=== PATIENT | male | born 1950 | race Caucasian/White ===

== ENCOUNTER 2018-10-27 19:59 | Emergency (ER) | payer MEDICARE, OTHER ==
--- NOTE | 2018-10-27 20:08 | ERPHSYRPT ---
- History of Present Illness Time Seen by Provider: 10/27/18 20:01 Historian: patient Exam Limitations: no limitations Physician History: 68 y/o white male presents with intermittent stinging sharp substernal cp for 2 weeks. he has had 2 episodes of heavy substernal cp. most recently tonight. pt denies soa. pt denies cough, abd pain, n/v/d. pt has htn, hypercholesterolemia. pt took one baby asa this morning. pt did state he is under a lot of stress Timing/Duration: week(s) (2), worse (today) Quality: dullness, pressure Location: substernal (left of ) Chest Pain Radiation: no radiation Severity of Pain-Max: mild Severity of Pain-Current: mild Associated Symptoms: No nausea, No vomiting, No palpitations, No heartburn, No abdominal pain, No shortness of breath, No cough, No hurts to breathe, No diaphoresis, No fatigue, No weakness, No swelling/lump in chest, No syncope, No rash, No headache, No dizziness, No edema, No back pain Prior Chest Pain/Cardiac Workup: no prior chest pain Nitro Today/Relief: no nitro taken today Aspirin Treatment Today: 81 mg x 1, provided at home Allergies/Adverse Reactions: No Known Drug Allergies Allergy (Verified 10/27/18 22:06) - Review of Systems Constitutional: No Symptoms Eyes: No Symptoms Ears, Nose, & Throat: No Symptoms Respiratory: No Symptoms Cardiac: Chest Pain (mild) Abdominal/Gastrointestinal: No Symptoms Genitourinary Symptoms: No Symptoms Musculoskeletal: No Symptoms Skin: No Symptoms Neurological: No Symptoms Psychological: No Symptoms Endocrine: No Symptoms Hematologic/Lymphatic: No Symptoms Immunological/Allergic: No Symptoms All Other Systems: Reviewed and Negative - Past Medical History Pertinent Past Medical History: Yes Neurological History: No Pertinent History ENT History: No Pertinent History Cardiac History: No Pertinent History Respiratory History: No Pertinent History Endocrine Medical History: No Pertinent History Musculoskeletal History: No Pertinent History GI Medical History: No Pertinent History History: No Pertinent History Psycho-Social History: No Pertinent History Male Reproductive Disorders: No Pertinent History - Past Surgical History Neuro Surgical History: No Pertinent History Cardiac: No Pertinent History Respiratory: No Pertinent History Gastrointestinal: No Pertinent History Genitourinary: No Pertinent History Musculoskeletal: No Pertinent History Male Surgical History: No Pertinent History - Nursing Vital Signs Nursing Vital Signs: Initial Vital Signs Temperature 97.9 F 10/27/18 20:16 Pulse Rate 92 H 10/27/18 20:16 Respiratory Rate 18 10/27/18 20:16 Blood Pressure 145/85 10/27/18 20:16 O2 Sat by Pulse Oximetry 96 10/27/18 20:16 Pain Scale Pain Intensity 2 - Physical Exam General Appearance: no apparent distress, alert, anxiety Eye Exam: PERRL/EOMI, eyes nml inspection Ears, Nose, Throat Exam: normal ENT inspection, TMs normal, moist mucous membranes Neck Exam: normal inspection, non-tender, supple, full range of motion Respiratory Exam: normal breath sounds, chest tenderness (mild), lungs clear, airway intact, No respiratory distress, No accessory muscle use, No rhonchi, No wheezing, No stridor Cardiovascular Exam: regular rate/rhythm, normal heart sounds, normal peripheral pulses Gastrointestinal/Abdomen Exam: soft, normal bowel sounds, No tenderness, No guarding, No rebound Rectal Exam: not done Back Exam: normal inspection, normal range of motion, No CVA tenderness, No vertebral tenderness Extremity Exam: normal inspection, normal range of motion, pelvis stable Neurologic Exam: alert, oriented x 3, cooperative, 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 Skin Exam: normal color, warm, dry Lymphatic Exam: No adenopathy SpO2 Interpretation: normal - Course Nursing assessment & vital signs reviewed: Yes EKG Interpreted by Me: RATE (92), Sinus Rhythm, NORMAL AXIS, NORMAL INTERVALS, NORMAL QRS, NORMAL ST-T Ordered Tests: Active Orders 24 hr Category Date Time Status Materials Mgmt Tech STAT Care 10/27/18 22:07 Active EKG-ER Only STAT Care 10/27/18 22:06 Active IV Insertion STAT Care 10/27/18 22:06 Active CHEST 1 VIEW (PORTABLE) Stat Exams 10/27/18 22:07 Taken CBC W DIFF Stat Lab 10/27/18 22:00 Completed CMP Stat Lab 10/27/18 22:00 Completed D-DIMER QUANTITATION Stat Lab 10/27/18 22:00 Completed NT PRO BNP Stat Lab 10/27/18 22:00 Completed TROPONIN Q3H Lab 10/27/18 22:00 Completed TROPONIN Q3H Lab 10/28/18 01:15 Ordered TROPONIN Q3H Lab 10/28/18 04:15 Ordered TROPONIN Q3H Lab 10/28/18 07:15 Ordered TROPONIN Q3H Lab 10/28/18 10:15 Ordered Medication Summary Generic Name Dose Route Start Last Admin Trade Name Malika PRN Reason Stop Dose Admin Sodium Chloride 1,000 mls @ 50 mls/hr 10/27/18 22:15 10/27/18 22:39 Sodium Chloride 0.9% 1000 Ml IV 11/26/18 22:14 50 mls/hr .Q20H TIMMY Administration Discontinued Medications Generic Name Dose Route Start Last Admin Trade Name Malika PRN Reason Stop Dose Admin Aspirin 243 mg 10/27/18 22:06 10/27/18 22:41 Baby Aspirin 81 Mg Chew PO 10/27/18 22:07 243 mg STAT ONE Administration Morphine Sulfate 2 mg 10/27/18 22:06 10/27/18 23:06 Morphine Sulfate 2 Mg Inj IV 10/27/18 22:07 Not Given STAT ONE Morphine Sulfate Confirm 10/27/18 22:34 Morphine Sulfate 2 Mg Inj Administered 10/27/18 22:35 Dose 2 mg .ROUTE .STK-MED ONE Ondansetron HCl 4 mg 10/27/18 22:06 10/27/18 23:06 Zofran 4 Mg/2 Ml Vial IV 10/27/18 22:07 Not Given STAT ONE Ondansetron HCl Confirm 10/27/18 22:34 Zofran 4 Mg/2 Ml Vial Administered 10/27/18 22:35 Dose 4 mg .ROUTE .STK-MED ONE Lab/Rad Data: Laboratory Result Diagrams 10/27/18 22:00 10/27/18 22:00 Laboratory Results 10/27/18 10/27/18 10/27/18 Range/Units 22:00 22:00 22:00 WBC (4.0-10.5) K/mm3 RBC (4.1-5.6) M/mm3 Hgb (12.5-18.0) gm/dl Hct (42-50) % MCV (78-100) fl MCH (26-32) pg MCHC (32-36) g/dl RDW (11.5-14.0) % Plt Count (150-450) K/mm3 MPV (6-9.5) fl Gran % (36.0-66.0) % Eos # (Auto) (0-0.5) Absolute Lymphs (auto) (1.0-4.6) Absolute Monos (auto) (0.0-1.3) Lymphocytes % (24.0-44.0) % Monocytes % (0.0-12.0) % Eosinophils % (0.00-5.0) % Basophils % (0.0-0.4) % Absolute Granulocytes (1.4-6.9) Basophils # (0-0.4) D-Dimer < 215 L (215-500) ng/mL Sodium 139 (137-145) mmol/L Potassium 3.8 (3.5-5.1) mmol/L Chloride 101 (98-107) mmol/L Carbon Dioxide 24 (22-30) mmol/L Anion Gap 17.9 H (5-15) MEQ/L BUN 24 H (9-20) mg/dL Creatinine 1.57 H (0.66-1.25) mg/dL Estimated GFR 46.8 ML/MIN Glucose 88 (74-106) mg/dL Calcium 9.3 (8.4-10.2) mg/dL Total Bilirubin 1.30 (0.2-1.3) mg/dL AST 35 (17-59) U/L ALT 28 (0-50) U/L Alkaline Phosphatase 85 (38-126) U/L Troponin I < 0.012 (0.000-0.034) ng/mL NT-Pro-B Natriuret Pep 61.9 (0-900) pg/mL Serum Total Protein 8.0 (6.3-8.2) g/dL Albumin 5.0 (3.5-5.0) g/dL 10/27/18 Range/Units 22:00 WBC 9.8 (4.0-10.5) K/mm3 RBC 5.45 (4.1-5.6) M/mm3 Hgb 16.8 (12.5-18.0) gm/dl Hct 50.7 H (42-50) % MCV 93.0 (78-100) fl MCH 30.8 (26-32) pg MCHC 33.1 (32-36) g/dl RDW 13.9 (11.5-14.0) % Plt Count 227 (150-450) K/mm3 MPV 11.2 H (6-9.5) fl Gran % 61.4 (36.0-66.0) % Eos # (Auto) 0.09 (0-0.5) Absolute Lymphs (auto) 2.75 (1.0-4.6) Absolute Monos (auto) 0.90 (0.0-1.3) Lymphocytes % 28.2 (24.0-44.0) % Monocytes % 9.2 (0.0-12.0) % Eosinophils % 0.9 (0.00-5.0) % Basophils % 0.3 (0.0-0.4) % Absolute Granulocytes 5.98 (1.4-6.9) Basophils # 0.03 (0-0.4) D-Dimer (215-500) ng/mL Sodium (137-145) mmol/L Potassium (3.5-5.1) mmol/L Chloride (98-107) mmol/L Carbon Dioxide (22-30) mmol/L Anion Gap (5-15) MEQ/L BUN (9-20) mg/dL Creatinine (0.66-1.25) mg/dL Estimated GFR ML/MIN Glucose (74-106) mg/dL Calcium (8.4-10.2) mg/dL Total Bilirubin (0.2-1.3) mg/dL AST (17-59) U/L ALT (0-50) U/L Alkaline Phosphatase (38-126) U/L Troponin I (0.000-0.034) ng/mL NT-Pro-B Natriuret Pep (0-900) pg/mL Serum Total Protein (6.3-8.2) g/dL Albumin (3.5-5.0) g/dL - Progress Progress: improved, re-examined Air Movement: good Progress Note: 10/27/18 23:40 pt denies cp, denies soa. cxr- no acute process Blood Culture(s) Obtained: No Antibiotics given: No Counseled pt/family regarding: lab results, diagnosis, need for follow-up, rad results - Departure Time of Disposition: 23:40 Departure Disposition: Home Clinical Impression: Chest pain Condition: Stable Critical Care Time: No Referrals: ISABELLE HURTADO MD [Primary Care Provider] - Additional Instructions: take medications as prescribed. follow up with primary doctor for further management
[2018-10-27] MEDS ORDERED: MORPHINE SULFATE 2 MG INJ IV ONE (22:06)
[2018-10-27] MEDS ORDERED: Zofran 4 MG/2 ML VIAL IV ONE (22:06)
[2018-10-27] MEDS ORDERED: BABY ASPIRIN 81 MG CHEW PO ONE (22:06)
[2018-10-27] MEDS ORDERED: Sodium Chloride 0.9% 1000 ML 1,000 ML IV SCH (22:15)
[2018-10-27 22:17] LABS: BASOPHIL % 0.3 % (0.0-0.4); Basophil (Absolute #) 0.03 (0-0.4); Eosinophil % 0.9 % (0.00-5.0); Eosinophil (Absolute #) 0.09 (0-0.5); Granulocyte Absolute (ANC) 5.98 (1.4-6.9); Granulocytes % 61.4 % (36.0-66.0); Hematocrit 50.7 % (42-50); Hemoglobin 16.8 gm/dl (12.5-18.0); Lymphocyte (Absolute #) 2.75 (1.0-4.6); Lymphocytes % 28.2 % (24.0-44.0); Mean Corpuscular Hemoglobin 30.8 pg (26-32); Mean Corpuscular Hgb Concent. 33.1 g/dl (32-36); Mean Platelet Volume 11.2 fl (6-9.5); Monocytes % 9.2 % (0.0-12.0); Platelet Count 227 K/mm3 (150-450); Red Blood Count 5.45 M/mm3 (4.1-5.6); Red Cell Distribution Width 13.9 % (11.5-14.0); White Blood Count 9.8 K/mm3 (4.0-10.5)
[2018-10-27 22:30] LABS: ANION GAP 17.9 MEQ/L (5-15); BILIRUBIN,TOTAL 1.3 mg/dL (0.2-1.3); Calcium 9.3 mg/dL (8.4-10.2); Creatinine 1 1.57 mg/dL (0.66-1.25); NT PRO BNP 61.9 pg/mL (0-900); Potassium 3.8 mmol/L (3.5-5.1)
[2018-10-27] MEDS ORDERED: MORPHINE SULFATE 2 MG INJ ONE (22:34)
[2018-10-27] MEDS ORDERED: Zofran 4 MG/2 ML VIAL ONE (22:34)
[2018-10-27] MEDS ORDERED: Sodium Chloride 0.9% 1000 ML 1,000 ML ONE (22:34)
[2018-10-27 23:15] VITALS: O2SAT 98
[2018-10-28 00:07] VITALS: BP 112/74; PULSE 89
--- NOTE | 2018-10-28 08:58 | XRAY ---
Indication: Chest pain. Comparison: None Portable apical lordotic chest slightly underinflated and clear. Heart and mediastinal structures within normal limits. Bony thorax intact with mild osteopenia and degenerative changes. Impression: Nonacute chest.
== END 2018-10-28 00:08 | disposition home or self-care (01) ==
LOC: ED 19:59
DX: R07.9 Chest pain, unspecified (principal)
CPT/HCPCS: 36000; 36415; 71045; 80053; 83880; 84484; 85025; 85379; 93005; 93041; 96360; 96361; 96374; 99284; J2270; J2405; A9270-GY

== ENCOUNTER 2019-10-07 18:31 | Emergency (ER) | payer MEDICARE, OTHER ==
--- NOTE | 2019-10-07 19:32 | ERPHSYRPT ---
- History of Present Illness Time Seen by Provider: 10/07/19 20:05 Source: patient Exam Limitations: no limitations Patient Subjective Stated Complaint: pt states that he has had cough that has lasted for the past 1 week, pt states intermitten pain to left ribs and abddomen when coughing, pt states that he has taken OTC cold medication and cough medication with no relief, pt states he has had fever in addition Triage Nursing Assessment: pt ambulated into ER, pt has dry hacking cough, pt states he is not able to cough anything up, pt has expiratory wheezing, hypertention, tachycardia Physician History: 69-year-old male endorses one week of persistent dry cough. Now having left- sided chest pain and abdominal cramping with coughing. No fevers or chills. Is also cold and flu has dried up his sinuses but not help with the cough. he denies fevers or chills, nausea or vomiting. Exertional chest pain or recent leg swelling. No travel or sick contacts. PMH: Patient endorses a history of hypertension Social: Patient denies tobacco Allergies/Adverse Reactions: No Known Drug Allergies Allergy (Verified 10/07/19 19:22) Home Medications: Aspirin 81 mg PO DAILY 10/07/19 [History] Atorvastatin Calcium 20 mg PO HS 10/07/19 [History] Lisinopril 5 mg PO DAILY 10/07/19 [History] Loratadine [Claritin] 10 mg PO DAILY 10/07/19 [History] Hx Tetanus, Diphtheria Vaccination/Date Given: Yes Hx Influenza Vaccination/Date Given: No Hx Pneumococcal Vaccination/Date Given: No - Review of Systems Constitutional: No Fever, No Chills Eyes: No Symptoms Ears, Nose, & Throat: No Symptoms Respiratory: Cough, Dyspnea Cardiac: No Chest Pain, No Edema, No Syncope Abdominal/Gastrointestinal: No Abdominal Pain, No Nausea, No Vomiting, No Diarrhea Genitourinary Symptoms: No Dysuria Musculoskeletal: No Back Pain, No Neck Pain Skin: No Rash Neurological: No Dizziness, No Focal Weakness, No Sensory Changes Psychological: No Symptoms Endocrine: No Symptoms All Other Systems: Reviewed and Negative - Past Medical History Pertinent Past Medical History: Yes Neurological History: No Pertinent History ENT History: No Pertinent History Cardiac History: High Cholesterol, Hypertension Respiratory History: No Pertinent History Endocrine Medical History: No Pertinent History Musculoskeletal History: No Pertinent History GI Medical History: No Pertinent History History: No Pertinent History Psycho-Social History: No Pertinent History Male Reproductive Disorders: No Pertinent History - Past Surgical History Past Surgical History: Yes Neuro Surgical History: No Pertinent History Cardiac: No Pertinent History Respiratory: No Pertinent History Gastrointestinal: Appendectomy Genitourinary: No Pertinent History Musculoskeletal: No Pertinent History Male Surgical History: No Pertinent History - Social History Smoking Status: Former smoker Exposure to second hand smoke: No Drug Use: none Patient Lives Alone: No - Nursing Vital Signs Nursing Vital Signs: Initial Vital Signs Temperature 99 F 10/07/19 19:11 Pulse Rate 107 H 10/07/19 19:11 Respiratory Rate 19 10/07/19 19:11 Blood Pressure 157/87 10/07/19 19:11 O2 Sat by Pulse Oximetry 95 10/07/19 19:11 - Physical Exam General Appearance: no apparent distress, alert Eye Exam: PERRL/EOMI Neck Exam: normal inspection, supple Respiratory Exam: normal breath sounds, lungs clear, No respiratory distress, No diminished breath sounds Cardiovascular/Chest Exam: normal heart sounds, regular rate/rhythm Abdominal/Gastrointestinal Exam: soft, No tenderness, No distention, No mass Extremity Exam: non-tender, normal range of motion, normal inspection, no calf tenderness, no pedal edema Neurologic Exam: alert, oriented x 3, cooperative, 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 No infiltrates on imaging. Very low suspicion for pneumonia. Likely acute bronchitis. No evidence of emergent cardiopulmonary etiology. Symptomatic treatment recommended. Follow up with primary care recommended. Patient was understanding of this plan at time of discharge. 10/08/19 01:56 Blood Culture(s) Obtained: No Antibiotics given: No - Departure Departure Disposition: Home Clinical Impression: Cough, Bronchitis Chest pain Qualifiers: Chest pain type: other chest pain Qualified Code(s): R07.89 - Other chest pain Condition: Stable Critical Care Time: No Referrals: ISABELLE HURTADO MD [Primary Care Provider] - Prescriptions: Prednisone 20 mg [Deltasone 20 mg] 40 mg PO DAILY #8 tablet
[2019-10-07 20:06] VITALS: BP 120/74; PULSE 101
[2019-10-07] MEDS ORDERED: DELTASONE 20 MG ONE (20:20)
[2019-10-07] MEDS: DELTASONE 20 MG PO ONE (20:22)
--- NOTE | 2019-10-07 22:54 | XRAY ---
Indication: Fever, cough, short of breath, and headache. Comparison: October 27, 2018. PA/lateral chest remains clear. Heart is not enlarged again with a few mediastinal calcified nodes. Bony thorax intact again with mild osteopenia and degenerative changes. Impression: Stable nonacute chest with chronic features.
[2019-10-08 01:57] VITALS: O2SAT 95
== END 2019-10-07 20:48 | disposition home or self-care (01) ==
LOC: ED 18:31
DX: R05 Cough (principal); J40 Bronchitis, not specified as acute or chronic; R07.89 Other chest pain
CPT/HCPCS: 71046; 99283; A9270-GY

== ENCOUNTER 2020-05-09 12:54 | Emergency (ER) | payer MEDICARE ==
[2020-05-09 13:08] VITALS: BP 118/85; PULSE 108; O2SAT 96
[2020-05-09] MEDS ORDERED: Adacel Vial IM ONE ×2 (13:21→13:31)
--- NOTE | 2020-05-09 13:41 | ERPHSYRPT ---
- History of Present Illness Time Seen by Provider: 05/09/20 13:06 Source: patient Exam Limitations: no limitations Patient Subjective Stated Complaint: Pt was cutting an onion and cut his left index finger at the tip Triage Nursing Assessment: Pt brought self to the ER, tachycardic, 1 cm bleeding laceration to the left index finger on the tip, pt on baby aspirin, pulses normal, denies pain, doesn't appear to be in any distress Physician History: 69 years old male presented in the ER with chief complaint of left index finger laceration while cutting onions with a knife. It is on the lateral aspect of her right distal index finger before the nail. There was bleeding initially but stopped after applying pressure. Mild pain with movements and applying pressure. Intact movements at distal interphalangeal joint. No injury to the nail. Occurred: just prior to arrival Method of Injury: incised Quality: constant Severity of Pain-Max: mild Severity of Pain-Current: none Extremities Pain Location: 2nd finger: left Modifying Factors: Improves With: movement Associated Symptoms: none Allergies/Adverse Reactions: No Known Drug Allergies Allergy (Verified 05/09/20 13:08) Home Medications: Aspirin 81 mg PO DAILY 10/07/19 [History] Atorvastatin Calcium 20 mg PO HS 10/07/19 [History] Loratadine [Claritin] 10 mg PO DAILY 10/07/19 [History] lisinopriL [Lisinopril] 5 mg PO DAILY 10/07/19 [History] Hx Tetanus, Diphtheria Vaccination/Date Given: Yes (unknown) Hx Influenza Vaccination/Date Given: No Hx Pneumococcal Vaccination/Date Given: No Travel Risk - International Travel Have you traveled outside of the country in past 3 weeks: No - Coronavirus Screening Are you exhibiting any of the following symptoms?: No Close contact with a COVID-19 positive Pt in past 14-21 Days: No - Review of Systems Constitutional: No Symptoms Eyes: No Symptoms Ears, Nose, & Throat: No Symptoms Respiratory: No Symptoms Cardiac: No Symptoms Abdominal/Gastrointestinal: No Symptoms Skin: Skin Lesions Neurological: No Symptoms Psychological: No Symptoms Endocrine: No Symptoms Hematologic/Lymphatic: No Symptoms Immunological/Allergic: No Symptoms - Past Medical History Pertinent Past Medical History: Yes Neurological History: No Pertinent History ENT History: No Pertinent History Cardiac History: High Cholesterol, Hypertension Respiratory History: No Pertinent History Endocrine Medical History: No Pertinent History Musculoskeletal History: No Pertinent History GI Medical History: No Pertinent History History: No Pertinent History Psycho-Social History: No Pertinent History Male Reproductive Disorders: No Pertinent History - Past Surgical History Past Surgical History: Yes Neuro Surgical History: No Pertinent History Cardiac: No Pertinent History Respiratory: No Pertinent History Gastrointestinal: Appendectomy Genitourinary: No Pertinent History Musculoskeletal: No Pertinent History Male Surgical History: No Pertinent History - Social History Smoking Status: Former smoker Exposure to second hand smoke: No Drug Use: none Patient Lives Alone: No - Nursing Vital Signs Nursing Vital Signs: Initial Vital Signs Temperature 98.5 F 05/09/20 13:01 Pulse Rate 108 H 05/09/20 13:01 Blood Pressure 118/85 05/09/20 13:01 O2 Sat by Pulse Oximetry 96 05/09/20 13:01 Pain Scale Pain Intensity 0 - Physical Exam General Appearance: no apparent distress, alert, anxiety Eyes, Ears, Nose, Throat Exam: normal ENT inspection Neck Exam: normal inspection, supple, full range of motion Cardiovascular/Respiratory Exam: chest non-tender, normal breath sounds Back Exam: normal inspection Hand Exam: normal ROM, laceration (1cm superficial left index distal phalanx lateral aspect ) Neuro/Tendon Exam: normal sensation, normal motor functions, normal tendon functions Mental Status Exam: alert, oriented x 3, cooperative Skin Exam: normal color SpO2 Interpretation: normal SpO2: 96 O2 Delivery: Room Air Procedures - Laceration/Wound Repair Left Upper Lateral Finger Wound Location: Left, hand Wound Length (cm): 1 Wound's Depth, Shape: superficial Wound Explored: clean Irrigated: Yes Hibiclens Prep: Yes Wound Repaired With: Steri-strips, Dermabond - Course Nursing assessment & vital signs reviewed: Yes Ordered Tests: Medication Summary Discontinued Medications Generic Name Dose Route Start Last Admin Trade Name Freq PRN Reason Stop Dose Admin Diphtheria/Tetanus/Acell Pertussis 0.5 ml 05/09/20 13:21 05/09/20 13:32 Adacel Vial IM 05/09/20 13:22 0.5 ml .ONCE ONE Administration Diphtheria/Tetanus/Acell Pertussis Confirm 05/09/20 13:31 Adacel Vial Administered 05/09/20 13:32 Dose 0.5 ml IM .STK-MED ONE - Progress Progress: improved Progress Note: Superficial cut. Repaired with glue and Steri-Strip. Counseled pt/family regarding: diagnosis, need for follow-up - Departure Departure Disposition: Home Clinical Impression: Finger laceration Qualifiers: Encounter type: initial encounter Finger: index finger Damage to nail status: without damage Foreign body presence: without foreign body Laterality: left Qualified Code(s): S61.211A - Laceration without foreign body of left index finger without damage to nail, initial encounter Condition: Stable Critical Care Time: No Referrals: ISABELLE HURTADO MD [Primary Care Provider] - (1-2 days for re evaluation) Instructions: Laceration Repair With Glue (DC), Wound Care (DC) Additional Instructions: apply ice, elevation, tylenol as needed.
== END 2020-05-09 13:45 | disposition home or self-care (01) ==
LOC: ED 12:54
DX: S61.211A Laceration without foreign body of left index finger without damage to nail, initial encounter (principal); W26.0XXA Contact with knife, initial encounter; Y93.G1 Activity, food preparation and clean up; Y92.9 Unspecified place or not applicable; Z79.899 Other long term (current) drug therapy; I10 Essential (primary) hypertension; E78.00 Pure hypercholesterolemia, unspecified
CPT/HCPCS: 12001; 90471; 90715; 99283

== ENCOUNTER 2022-12-30 18:54 | Emergency (ER) | payer MEDICARE ==
--- NOTE | 2022-12-30 19:03 | ERPHSYRPT ---
- History of Present Illness Time Seen by Provider: 12/30/22 19:03 Historian: patient, family Exam Limitations: no limitations Physician History: This is a 72-year-old white male who presents with 1 week long of intermittent substernal central chest pain described as nonradiating and kind of a burning area. 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 Patient does have a history of hypertension and elevated cholesterol. Patient sees Dr. Hurtado tomorrow morning in his office. He does not complain of shortness of breath. He has no abdominal pain. He has no flulike symptoms. Additional information history was obtained from the patient's spouse. Patient was concerned because it has been more constant throughout the day today. He was not exerting himself any different than he normally does. Timing/Duration: week(s) (1) Activities at Onset: none Quality: burning Location: substernal, central Chest Pain Radiation: no radiation (Localized) Severity of Pain-Max: mild Severity of Pain-Current: mild Modifying Factors: Improves With: nothing Associated Symptoms: denies symptoms Prior Chest Pain/Cardiac Workup: no prior chest pain, no prior cardiac workup Nitro Today/Relief: no nitro taken today Aspirin Treatment Today: 81 mg x 1, provided at home Allergies/Adverse Reactions: No Known Drug Allergies Allergy (Verified 12/30/22 19:08) Home Medications: Aspirin 81 mg PO DAILY 10/07/19 [History] Atorvastatin Calcium 20 mg PO HS 10/07/19 [History] lisinopriL [Lisinopril] 5 mg PO DAILY 10/07/19 [History] Potassium Citrate [Potassium] 99 mg PO DAILY 12/30/22 [History] Hx Tetanus, Diphtheria Vaccination/Date Given: Yes (unknown) Hx Influenza Vaccination/Date Given: No Hx Pneumococcal Vaccination/Date Given: No Travel Risk - International Travel Have you traveled outside of the country in past 3 weeks: No - Coronavirus Screening Are you exhibiting any of the following symptoms?: No Close contact with a COVID-19 positive Pt in past 14-21 Days: No - Review of Systems Constitutional: No Symptoms Eyes: No Symptoms Ears, Nose, & Throat: No Symptoms Respiratory: No Symptoms Cardiac: Chest Pain Abdominal/Gastrointestinal: No Symptoms Genitourinary Symptoms: No Symptoms Musculoskeletal: No Symptoms Skin: No Symptoms Neurological: No Symptoms Psychological: No Symptoms Endocrine: No Symptoms Hematologic/Lymphatic: No Symptoms Immunological/Allergic: No Symptoms All Other Systems: Reviewed and Negative - Past Medical History Pertinent Past Medical History: Yes Neurological History: No Pertinent History ENT History: No Pertinent History Cardiac History: High Cholesterol, Hypertension Respiratory History: No Pertinent History Endocrine Medical History: No Pertinent History Musculoskeletal History: No Pertinent History GI Medical History: No Pertinent History History: No Pertinent History Psycho-Social History: No Pertinent History Male Reproductive Disorders: No Pertinent History - Past Surgical History Past Surgical History: Yes Neuro Surgical History: No Pertinent History Cardiac: No Pertinent History Respiratory: No Pertinent History Gastrointestinal: Appendectomy Genitourinary: No Pertinent History Musculoskeletal: No Pertinent History Male Surgical History: No Pertinent History - Social History Smoking Status: Former smoker Exposure to second hand smoke: No Drug Use: none Patient Lives Alone: No - Nursing Vital Signs Nursing Vital Signs: Initial Vital Signs Temperature 98.2 F 12/30/22 18:56 Pulse Rate 86 12/30/22 18:56 Respiratory Rate 21 12/30/22 18:56 Blood Pressure 151/87 12/30/22 18:56 O2 Sat by Pulse Oximetry 98 12/30/22 18:56 Pain Scale Pain Intensity 3 - Physical Exam General Appearance: no apparent distress, alert, anxiety Eye Exam: PERRL/EOMI, eyes nml inspection Ears, Nose, Throat Exam: normal ENT inspection, moist mucous membranes Neck Exam: normal inspection, non-tender, supple, full range of motion Respiratory Exam: normal breath sounds, chest tenderness, lungs clear, airway intact, No respiratory distress Cardiovascular Exam: regular rate/rhythm, normal heart sounds, normal peripheral pulses Gastrointestinal/Abdomen Exam: soft, normal bowel sounds, No tenderness Rectal Exam: not done Back Exam: normal inspection, normal range of motion, No CVA tenderness, No vertebral tenderness Extremity Exam: normal inspection, normal range of motion, pelvis stable Neurologic Exam: alert, oriented x 3, cooperative, can dragger II-XII nml as tested, normal mood/affect, nml cerebellar function, nml station & gait, sensation nml Skin Exam: normal color, warm, dry Lymphatic Exam: No adenopathy SpO2 Interpretation: normal O2 Delivery: Room Air - Course Nursing assessment & vital signs reviewed: Yes EKG Interpreted by Me: RATE, A-fib, NORMAL AXIS, NORMAL INTERVALS, NORMAL QRS, Other (No acute ischemic changes on today's EKG. This twelve-lead EKG was interpreted by me. There is rate controlled atrial fibrillation on today's twelve-lead EKG which is different than the normal sinus rhythm that was present on the twelve-lead EKG that was performed on 11/26/2018.) Ordered Tests: Active Orders 24 hr Category Date Time Status Air Drier Machine Operator STAT Care 12/30/22 19:09 Active EKG-ER Only STAT Care 12/30/22 19:08 Active IV Insertion STAT Care 12/30/22 19:08 Active Pulse Oximetry (ED) STAT Care 12/30/22 19:08 Active CHEST 1 VIEW (PORTABLE) Stat Exams 12/30/22 19:08 Taken CBC W DIFF Stat Lab 12/30/22 19:00 Completed CMP Stat Lab 12/30/22 19:00 Completed D-DIMER QUANTITATIVE Stat Lab 12/30/22 19:00 Completed NT PRO BNP Stat Lab 12/30/22 19:00 Completed TROPONIN Q4H Lab 12/30/22 19:00 Completed TROPONIN Q4H Lab 12/30/22 23:15 Ordered TROPONIN Q4H Lab 12/31/22 03:15 Ordered Medication Summary Discontinued Medications Generic Name Dose Route Start Last Admin Trade Name Freq PRN Reason Stop Dose Admin Aspirin 243 mg 12/30/22 19:08 12/30/22 19:13 Aspirin 81 Mg Tab.Chew PO 12/30/22 19:09 243 mg STAT ONE Administration Lab/Rad Data: Laboratory Result Diagrams 12/30/22 19:00 12/30/22 19:00 Laboratory Results 12/30/22 12/30/22 12/30/22 Range/Units 19:00 19:00 19:00 WBC (4.0-10.5) x10^3/uL RBC (4.1-5.6) x10^6/uL Hgb (12.5-18.0) g/dL Hct (42-50) % MCV (78-100) fL MCH (26-32) pg MCHC (32-36) g/dL RDW (11.5-14.0) % Plt Count (150-450) x10^3/uL MPV (7.5-11.0) fL Gran % (36.0-66.0) % Immature Gran % (Auto) (0.00-0.4) % Nucleat RBC Rel Count (0.00-0.1) % Eos # (Auto) (0-0.5) x10^3/uL Immature Gran # (Auto) (0.00-0.03) x10^3u/L Absolute Lymphs (auto) (1.0-4.6) x10^3/uL Absolute Monos (auto) (0.0-1.3) x10^3/uL Absolute Nucleated RBC (0.00-0.01) x10^3u/L Lymphocytes % (24.0-44.0) % Monocytes % (0.0-12.0) % Eosinophils % (0.00-5.0) % Basophils % (0.0-0.4) % Absolute Granulocytes (1.4-6.9) x10^3/uL Basophils # (0-0.4) x10^3/uL D-Dimer < 0.19 (0.0-0.50) mg/L Sodium 139 (137-145) mmol/L Potassium 4.0 (3.5-5.1) mmol/L Chloride 105 (98-107) mmol/L Carbon Dioxide 26 (22-30) mmol/L Anion Gap 12.0 (5-15) MEQ/L BUN 21 H (9-20) mg/dL Creatinine 1.30 H (0.66-1.25) mg/dL Estimated GFR 57.5 ML/MIN Glucose 128 H (74-106) mg/dL Calcium 8.8 (8.4-10.2) mg/dL Total Bilirubin 1.00 (0.2-1.3) mg/dL AST 30 (17-59) U/L ALT 23 (0-50) U/L Alkaline Phosphatase 73 (38-126) U/L Troponin I < 0.012 (0.000-0.034) ng/mL NT-Pro-B Natriuret Pep 65.9 (0-900) pg/mL Serum Total Protein 7.3 (6.3-8.2) g/dL Albumin 4.7 (3.5-5.0) g/dL 12/30/22 Range/Units 19:00 WBC 9.6 (4.0-10.5) x10^3/uL RBC 5.47 (4.1-5.6) x10^6/uL Hgb 16.7 (12.5-18.0) g/dL Hct 50.3 H (42-50) % MCV 92.0 (78-100) fL MCH 30.5 (26-32) pg MCHC 33.2 (32-36) g/dL RDW 13.7 (11.5-14.0) % Plt Count 244 (150-450) x10^3/uL MPV 10.6 (7.5-11.0) fL Gran % 57.1 (36.0-66.0) % Immature Gran % (Auto) 0.3 (0.00-0.4) % Nucleat RBC Rel Count 0.0 (0.00-0.1) % Eos # (Auto) 0.29 (0-0.5) x10^3/uL Immature Gran # (Auto) 0.03 (0.00-0.03) x10^3u/L Absolute Lymphs (auto) 3.15 (1.0-4.6) x10^3/uL Absolute Monos (auto) 0.59 (0.0-1.3) x10^3/uL Absolute Nucleated RBC 0.00 (0.00-0.01) x10^3u/L Lymphocytes % 32.8 (24.0-44.0) % Monocytes % 6.1 (0.0-12.0) % Eosinophils % 3.0 (0.00-5.0) % Basophils % 0.7 (0.0-0.4) % Absolute Granulocytes 5.48 (1.4-6.9) x10^3/uL Basophils # 0.07 (0-0.4) x10^3/uL D-Dimer (0.0-0.50) mg/L Sodium (137-145) mmol/L Potassium (3.5-5.1) mmol/L Chloride (98-107) mmol/L Carbon Dioxide (22-30) mmol/L Anion Gap (5-15) MEQ/L BUN (9-20) mg/dL Creatinine (0.66-1.25) mg/dL Estimated GFR ML/MIN Glucose (74-106) mg/dL Calcium (8.4-10.2) mg/dL Total Bilirubin (0.2-1.3) mg/dL AST (17-59) U/L ALT (0-50) U/L Alkaline Phosphatase (38-126) U/L Troponin I (0.000-0.034) ng/mL NT-Pro-B Natriuret Pep (0-900) pg/mL Serum Total Protein (6.3-8.2) g/dL Albumin (3.5-5.0) g/dL - Progress Progress: improved, re-examined Air Movement: good Progress Note: 12/30/22 20:29 Chest x-ray shows no acute cardiopulmonary process. This chest x-ray was interp reted by me 12/30/22 20:31 Medical decision-making: This patient has a medical issue that is of moderate complexity. This is based on the history obtained from the patient as well as additional history obtained from the patient's spouse. In addition, included in this decision making process was physical examination and the results from laboratory data, twelve-lead EKG and chest x-ray results. I also compared the twelve-lead EKG to a prior twelve-lead EKG and there is a change from a normal sinus rhythm in 2018 to the rate controlled atrial fibrillation that is present in today's EKG. The laboratory results do not support a diagnosis of pulmonary embolus with a normal D-dimer and acute myocardial infarction with a normal troponin. Based on the above work-up we also formulated a plan and that plan was discussed with the patient and the patient's spouse. We will provide the patient with single 70 mg subcutaneous dose of Lovenox since the patient does have heart rate controlled atrial fibrillation that is new. He will keep his appointment with Dr. Hurtado in the morning, 12/31/2022 Blood Culture(s) Obtained: No Antibiotics given: No Counseled pt/family regarding: lab results, diagnosis, need for follow-up, rad results - Departure Departure Disposition: Home Clinical Impression: New onset atrial fibrillation Condition: Stable Critical Care Time: No Referrals: ISABELLE HURTADO MD [Primary Care Provider] - Follow up/PCP as directed Additional Instructions: Take all your medications as prescribed. Keep your appointment with Dr. Hurtado tomorrow morning.
[2022-12-30] MEDS ORDERED: BABY ASPIRIN 81 MG CHEW PO ONE (19:08)
[2022-12-30 19:23] LABS: Absolute Neutrophil Ct (ANC) 5.48 x10^3/uL (1.4-6.9); BASOPHIL % 0.7 % (0.0-0.4); Basophil (Absolute #) 0.07 x10^3/uL (0-0.4); Eosinophil (Absolute #) 0.29 x10^3/uL (0-0.5); Hematocrit 50.3 % (42-50); Hemoglobin 16.7 g/dL (12.5-18.0); IMMATURE GRAN # 0.03 x10^3u/L (0.00-0.03); IMMATURE GRAN % 0.3 % (0.00-0.4); Lymphocyte (Absolute #) 3.15 x10^3/uL (1.0-4.6); Lymphocytes % 32.8 % (24.0-44.0); Mean Corpuscular Hemoglobin 30.5 pg (26-32); Mean Corpuscular Hgb Concent. 33.2 g/dL (32-36); Mean Platelet Volume 10.6 fL (7.5-11.0); Monocyte (Absolute #) 0.59 x10^3/uL (0.0-1.3); Monocytes % 6.1 % (0.0-12.0); Neutrophil % 57.1 % (36.0-66.0); Platelet Count 244 x10^3/uL (150-450); Red Blood Count 5.47 x10^6/uL (4.1-5.6); Red Cell Distribution Width 13.7 % (11.5-14.0); White Blood Count 9.6 x10^3/uL (4.0-10.5)
[2022-12-30 19:47] LABS: ALBUMIN 4.7 g/dL (3.5-5.0); Calcium 8.8 mg/dL (8.4-10.2); Creatinine 1 1.3 mg/dL (0.66-1.25); EST GLOMERULAR FILTRATION RATE 57.5 ML/MIN; NT PRO BNP 65.9 pg/mL (0-900); Total Protein 7.3 g/dL (6.3-8.2)
[2022-12-30] MEDS ORDERED: ENOXAPARIN SODIUM SQ ONE ×2 (20:30→20:35)
[2022-12-30 21:22] VITALS: BP 124/82; PULSE 74; O2SAT 98
--- NOTE | 2022-12-31 08:52 | XRAY ---
Indication: Chest pain. Comparison: October 07, 2019 Portable apical chest less inflated with new minimal left costophrenic angle subsegmental atelectasis/scarring. Remaining heart and lungs unremarkable again with a few incidental tiny calcified granulomas. Bony thorax intact again with osteopenia and mild degenerative changes. No acute findings.
== END 2022-12-30 21:26 | disposition home or self-care (01) ==
LOC: ED 18:54
DX: I48.91 Unspecified atrial fibrillation (principal); R07.9 Chest pain, unspecified; I10 Essential (primary) hypertension; E78.5 Hyperlipidemia, unspecified; Z79.899 Other long term (current) drug therapy
CPT/HCPCS: 36000; 36415; 71045; 80053; 83880; 84484; 85025; 85379; 93005; 93041; 94760; 96372; 99284; J1650; A9270-GY

== ENCOUNTER 2024-05-11 00:28 | Emergency (ER) | payer MEDICARE ==
[2024-05-11 00:47] VITALS: TEMP 97.1
--- NOTE | 2024-05-11 01:09 | ERPHSYRPT ---
- History of Present Illness Time Seen by Provider: 05/11/24 01:06 Historian: patient Exam Limitations: no limitations Patient Subjective Stated Complaint: pt states he has not had a bowel movement in the past 3 days Triage Nursing Assessment: pt ambulated into the er; pt is axo x4; c/o constipation; pt denies pain; abd round, soft, non tender; denies N/V; skin PDW; no respiratory distress; hypertension Physician History: The patient presents with a three-day history of constipation, a recurrent issue over the past few months. He has previously used laxatives to manage the condition, but has not taken any medication for the current episode. He denies any abdominal pain, although he reports a previous episode of discomfort on the left side of the abdomen a month ago. The patient has not previously undergone a colonoscopy. He reports a diet that includes fruits and vegetables, but also a fondness for peanut butter. He has been passing small, pellet-like stools and experiencing significant gas. Timing/Duration: day(s) (3) Activities at Onset: none Quality: fullness Abdominal Pain Onset Location: generalized abdomen Pain Radiation: no radiation Severity of Pain-Max: none Severity of Pain-Current: none Modifying Factors: Worsens With: nothing Associated Symptoms: denies symptoms Previous symptoms: same symptoms as today Allergies/Adverse Reactions: No Known Drug Allergies Allergy (Verified 12/30/22 19:08) Home Medications: Aspirin 81 mg PO DAILY 10/07/19 [History] Atorvastatin Calcium 20 mg PO HS 10/07/19 [History] lisinopriL [Lisinopril] 5 mg PO DAILY 10/07/19 [History] Potassium Citrate [Potassium] 99 mg PO DAILY 12/30/22 [History] Metoprolol Succinate 25 mg Xl* [Toprol-Xl 25MG Tablets] 25 mg PO DAILY 05/11/24 [History] Hx Tetanus, Diphtheria Vaccination/Date Given: No Hx Influenza Vaccination/Date Given: No Hx Pneumococcal Vaccination/Date Given: No Immunizations Up to Date: No Travel Risk - International Travel Have you traveled outside of the country in past 3 weeks: No - Emerging Infectious Disease Are you exhibiting symptoms associated with any current EIDs: No - Review of Systems All Other Systems: Reviewed and Negative - Past Medical History Pertinent Past Medical History: Yes Neurological History: No Pertinent History ENT History: No Pertinent History Cardiac History: High Cholesterol, Hypertension Respiratory History: No Pertinent History Endocrine Medical History: No Pertinent History Musculoskeletal History: No Pertinent History GI Medical History: No Pertinent History History: No Pertinent History Psycho-Social History: No Pertinent History Male Reproductive Disorders: No Pertinent History - Past Surgical History Past Surgical History: Yes Neuro Surgical History: No Pertinent History Cardiac: No Pertinent History Respiratory: No Pertinent History Gastrointestinal: Appendectomy Genitourinary: No Pertinent History Musculoskeletal: No Pertinent History Male Surgical History: No Pertinent History - Social History Smoking Status: Former smoker Exposure to second hand smoke: No Drug Use: none Patient Lives Alone: No - Social Determinants of Health Will the patient participate in the screening: Yes Do you worry about a steady place to live?: No Do you have any problems with any of the following?: No known problems In the past 12 months,have you had to go without utilities?: No Transportation Issues: No Has anyone in your support network made you feel unsafe?: No Have you or anyone in your house had to go without enough: No - Nursing Vital Signs Nursing Vital Signs: Initial Vital Signs Blood Pressure 150/80 05/11/24 00:39 Pain Scale Pain Intensity 0 - Physical Exam Gastrointestinal/Abdomen Exam: soft, other (hyperactive BS), No tenderness, No distention, No mass, No guarding, No rebound SpO2: 99 - Course Nursing assessment & vital signs reviewed: Yes - Progress Progress: unchanged Progress Note: Chronic Constipation: Recurrent episodes over the past few months. No associated abdominal pain. Previous use of laxatives with temporary relief. No bowel movement for the past three days. -Start Miralax (polyethylene glycol) daily. Adjust dose based on stool consistency. -Start Docusate/Senna for stool softening. -Consider dietary modifications if necessary. Colon Cancer Screening: No previous colonoscopy. New onset of constipation symptoms. -Recommend scheduling a screening colonoscopy with primary care physician. Counseled pt/family regarding: diagnosis Medical Desision Making - Diagnostic Testing Diagnostic test were ordered, analyzed, and reviewed by me: No - Risk of complications The pt has a mod risk of morbidity or mortality based on: Need for prescription drug management - Departure Departure Disposition: Home Clinical Impression: Constipation Condition: Good Critical Care Time: No Referrals: ISABELLE HURTADO MD [Primary Care Provider] - Follow up/PCP as directed Instructions: Constipation, Adult (DC) Prescriptions: Sennosides/Docusate Sodium [Docusate Sodium-Sennosides Tab] 1 each PO BID PRN 10 Days #20 tablet PRN Reason: Constipation Polyethylene Glycol 3350 17 gm [Miralax Powder 17GM PACKET] 17 gm PO DAILY 10 Days #10 packet
[2024-05-11 01:28] VITALS: BP 125/85; PULSE 74; RESP 17
[2024-05-11 06:51] VITALS: O2SAT 99
== END 2024-05-11 01:28 | disposition home or self-care (01) ==
LOC: ED 00:28
DX: K59.00 Constipation, unspecified (principal); E78.5 Hyperlipidemia, unspecified; I10 Essential (primary) hypertension; Z79.899 Other long term (current) drug therapy
CPT/HCPCS: 99281

== ENCOUNTER 2024-06-14 09:26 | Day surgery (SDC) | payer MEDICARE ==
[~2024-06-14 09:26] MED LIST: Lactated Ringers 1,000 ML IV ONE
[2024-06-14] MEDS: Lactated Ringers 1,000 ML IV SCH (09:47)
[2024-06-14] MEDS: TETRACAINE 0.5% STERI-UNIT SOL OP ONE ×2 (09:48→09:49)
[2024-06-14] MEDS ORDERED: BETADINE 5% OPHTHALMIC 30 ML OP ONE (10:00)
[2024-06-14] MEDS ORDERED: cefUROXime sodium 0.005 GM in Sodium Chloride Flush 30 ML*** 0.5 ML IJ ONE (10:00)
[2024-06-14] MEDS: Ak-Dilate OPHTHALMIC*** 1.065 ML, Cyclogyl 1% OPHTH SOL 1.065 ML, GATIFLOXACIN 0.5% OPH... OP ONE (10:00)
[2024-06-14] MEDS ORDERED: NON-FORMULARY ITEM OP ONE (10:00)
[2024-06-14] MEDS ORDERED: Epinephrine Preservative Free 1 MG/ML IJ ONE (11:30)
[2024-06-14] MEDS ORDERED: Zofran 4 MG/2 ML VIAL IV PRN (11:30)
[2024-06-14] MEDS ORDERED: DIPRIVAN 200 MG/20 ML IV ONE (11:50)
[2024-06-14 12:27] VITALS: RESP 18
[2024-06-14] MEDS: ACETAZOLAMIDE 250 MG TABLET PO ONE (12:29)
[2024-06-14 12:38] VITALS: O2SAT 97
[2024-06-14 12:42] VITALS: BP 113/69; PULSE 55; TEMP 97
== END 2024-06-14 12:45 | disposition home or self-care (01) ==
LOC: SDC 09:26
PROVIDERS: ATTEND Ophthalmology
DX: H25.812 Combined forms of age-related cataract, left eye (principal)
CPT/HCPCS: C1780; J0171; J2704; A9270-GY

== ENCOUNTER 2024-07-19 09:18 | Day surgery (SDC) | payer MEDICARE ==
[~2024-07-19 09:18] MED LIST changes: +BETADINE 5% OPHTHALMIC 30 ML OP ONE; -Lactated Ringers 1,000 ML IV ONE; +MOXIFLOXACIN 4 MG/0.8 ML VIAL IO ONE
[2024-07-19] MEDS ORDERED: Epinephrine Preservative Free 1 MG/ML IJ ONE (09:19)
[2024-07-19] MEDS ORDERED: Lactated Ringers 1,000 ML IV ONE (09:21)
[2024-07-19] MEDS: Lactated Ringers 1,000 ML IV SCH (09:36)
[2024-07-19] MEDS: TETRACAINE 0.5% STERI-UNIT SOL OP ONE ×2 (09:45→10:19)
[2024-07-19] MEDS: Ak-Dilate OPHTHALMIC*** 1.065 ML, Cyclogyl 1% OPHTH SOL 1.065 ML, GATIFLOXACIN 0.5% OPH... OP ONE (09:53)
[2024-07-19] MEDS ORDERED: TRIAMCINOLONE 15 MG/ML INJ INTRAOP ONE (11:15)
[2024-07-19] MEDS ORDERED: Zofran 4 MG/2 ML VIAL IV PRN (11:30)
[2024-07-19] MEDS ORDERED: DIPRIVAN 200 MG/20 ML IV ONE (12:05)
[2024-07-19] MEDS ORDERED: ROBINUL ONE (12:19)
[2024-07-19 12:43] VITALS: RESP 16; O2SAT 94
[2024-07-19] MEDS: ACETAZOLAMIDE 250 MG TABLET PO ONE (12:43)
[2024-07-19 12:51] VITALS: BP 104/66; PULSE 92; TEMP 97.1
== END 2024-07-19 13:02 | disposition home or self-care (01) ==
LOC: SDC 09:18
PROVIDERS: ATTEND Ophthalmology
DX: H25.811 Combined forms of age-related cataract, right eye (principal)
CPT/HCPCS: 99100; C1780; J0171; J2704; A9270-GY